=== PATIENT | female | born 1960 | race Two or more races ===

== ENCOUNTER 2022-12-23 00:59 | Emergency (ER) | payer OTHER ==
[~2022-12-23] VITALS: Ht 167.6 cm; Wt 63.5 kg
[2022-12-23] MEDS ORDERED: BUTALB-ACETAMI1 EACH PO (01:13)
[2022-12-23] MEDS ORDERED: INDERAL LA120 MG PO (01:13)
[2022-12-23] MEDS ORDERED: COZAAR50 MG PO (01:14)
[2022-12-23] MEDS ORDERED: PAROXETINE HCL40 MG PO (01:15)
[2022-12-23] MEDS ORDERED: CLONAZEPAM2 M1 PO (01:15)
[2022-12-23] MEDS ORDERED: RELAFEN DS1000 MG (01:16)
[2022-12-23] MEDS ORDERED: NEURONTIN800 MG PO (01:16)
== END 2022-12-23 02:10 | disposition home or self-care (01) ==
LOC: ER 00:59
DX: G43.909 Migraine, unspecified, not intractable, without status migrainosus (principal); Z88.6 Allergy status to analgesic agent; Z88.0 Allergy status to penicillin

== ENCOUNTER 2023-01-29 10:13 | Emergency (ER) | payer OTHER ==
[~2023-01-29] VITALS: Ht 167.6 cm; Wt 63.5 kg
[~2023-01-29 10:13] MED LIST: BUTALB-ACETAMI1 EACH PO; CLONAZEPAM2 M1 PO; COZAAR50 MG PO; INDERAL LA120 MG PO; NEURONTIN800 MG PO; PAROXETINE HCL40 MG PO; RELAFEN DS1000 MG
== END 2023-01-29 13:33 | disposition home or self-care (01) ==
LOC: ER 10:13
DX: M79.7 Fibromyalgia (principal); I10 Essential (primary) hypertension; Z88.0 Allergy status to penicillin; Z88.6 Allergy status to analgesic agent; M62.838 Other muscle spasm

== ENCOUNTER 2023-06-09 13:21 | Emergency (ER) | payer OTHER ==
[~2023-06-09] VITALS: Ht 167.6 cm; Wt 65.8 kg
== END 2023-06-09 17:47 | disposition home or self-care (01) ==
LOC: ER 13:21
DX: G43.809 Other migraine, not intractable, without status migrainosus (principal); Z88.6 Allergy status to analgesic agent; Z88.0 Allergy status to penicillin
CPT/HCPCS: 96372; 99284; J1100; J1200

== ENCOUNTER 2023-07-19 19:25 | Emergency (ER) | payer OTHER ==
[~2023-07-19] VITALS: Ht 167.6 cm; Wt 63.5 kg
== END 2023-07-20 00:31 | disposition home or self-care (01) ==
LOC: ER 19:25
DX: M43.6 Torticollis (principal); Z88.0 Allergy status to penicillin; Z88.6 Allergy status to analgesic agent
CPT/HCPCS: 96372; 99284; J1100; J2250; J2360

== ENCOUNTER 2023-10-01 13:29 | Emergency (ER) | payer OTHER ==
[~2023-10-01] VITALS: Ht 167.6 cm; Wt 68.0 kg
== END 2023-10-01 15:06 | disposition home or self-care (01) ==
LOC: ER 13:30
DX: M13.88 Other specified arthritis, other site (principal); Z88.6 Allergy status to analgesic agent; Z88.0 Allergy status to penicillin
CPT/HCPCS: 96372; 99284; J1100; J2360

== ENCOUNTER 2023-11-01 09:48 | Emergency (ER) | payer OTHER ==
[~2023-11-01] VITALS: Ht 167.6 cm; Wt 65.8 kg
[2023-11-01] MEDS ORDERED: FIORICET (10:08)
[2023-11-01] MEDS ORDERED: VERELAN PM200 MG (10:09)
== END 2023-11-01 17:58 | disposition home or self-care (01) ==
LOC: ER 09:49
DX: I10 Essential (primary) hypertension (principal); Z88.0 Allergy status to penicillin; Z88.5 Allergy status to narcotic agent; Z88.6 Allergy status to analgesic agent

== ENCOUNTER 2023-12-04 16:48 | Emergency (ER) | payer OTHER ==
[~2023-12-04] VITALS: Ht 154.9 cm; Wt 65.8 kg
[~2023-12-04 16:48] MED LIST changes: +FIORICET; +VERELAN PM200 MG
== END 2023-12-04 19:40 | disposition home or self-care (01) ==
LOC: ER 16:48
DX: H60.8X2 Other otitis externa, left ear (principal); Z88.0 Allergy status to penicillin; Z88.6 Allergy status to analgesic agent
CPT/HCPCS: 96372; 99282; J1100; J3490

== ENCOUNTER 2024-02-11 18:38 | Emergency (ER) | payer OTHER ==
[~2024-02-11] VITALS: Ht 167.6 cm; Wt 72.6 kg
[2024-02-11] MEDS ORDERED: ORPHENADRINE CITRATE 30 MG/ML AMPUL IM STA (19:56)
[2024-02-11] MEDS ORDERED: DEXAMETHASONE SODIUM PHOSPHATE 4 MG/ML VIAL IM STA (19:57)
== END 2024-02-11 20:29 | disposition home or self-care (01) ==
LOC: ER 18:38
DX: R51.9 Headache, unspecified (principal); Z88.0 Allergy status to penicillin; Z88.6 Allergy status to analgesic agent; Z88.5 Allergy status to narcotic agent
CPT/HCPCS: 96372; 99282; J1100; J3490